=== PATIENT | female | born 1970 | race Caucasian/White ===

== ENCOUNTER 2025-07-04 13:18 | Emergency (ER) | payer OTHER, SELFPAY ==
[2025-07-04] VITALS (12 sets, daily range): BP systolic 123–160; BP diastolic 81–101; PULSE 75–90; RESP 14–27; TEMP 36.9; O2SAT 79–100; BMI 26.2
--- NOTE | 2025-07-04 13:27 | DI.RAD.S_ITS ---
PROCEDURE: XR CHEST 1V INDICATIONS: Chest Pain TECHNIQUE: One view of the chest was acquired. COMPARISON: None. FINDINGS: Surgical changes and devices: None. Lungs and pleura: Lungs are clear. No pleural effusions or pneumothorax. Mediastinum: Mediastinal contours appear normal. Heart size is normal. Bones and chest wall: No suspicious bony lesions. Overlying soft tissues appear unremarkable. IMPRESSION: No acute cardiopulmonary abnormality is seen. Dictated by: Mayra Douglass M.D. on 07/04/2025 at 13:50 Approved by: Mayra Douglass M.D. on 07/04/2025 at 13:50
--- NOTE | 2025-07-04 13:27 | EKG_ITS ---
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
[2025-07-04 13:39] LABS: Add Manual Diff / Slide Review NO; Hematocrit 41.4 % (36-46); Hemoglobin 14.1 g/dL (12.0-16.0); Lymphocytes Absolute Auto 2200 /uL (1100-4500); Mean Corpuscular HGB Conc 34.0 % (30-36); Mean Corpuscular Hemoglobin 30.1 PG (26-34); Mean Corpuscular Volume 88.6 fL (80-100); Platelet Count 277 X10^3/uL (150-400)
[2025-07-04 13:47] LABS: INR 1.0 (0.9-1.3); Prothrombin Time 11.0 SECONDS (9.4-12.5)
[2025-07-04 13:49] LABS: PTT Partial Thromboplastin Tim 30 SECONDS (25.1-36.5)
[2025-07-04 13:53] LABS: Alanine Aminotransferase 18 IU/L (<35); Albumin 4.7 g/dL (3.5-5.0); Albumin Globulin Ratio 1.6 (1.0-2.8); Alkaline Phosphatase 78 U/L (38-126); Blood Urea Nitrogen 18 mg/dL (7-17); Calcium 9.1 mg/dL (8.4-10.2); Carbon Dioxide 24 mmol/L (22-32); Chloride 102 mmol/L (98-107); Creatine Kinase 48 U/L (30-135); Estimated Glomerular Filt Rate > 60 mL/min (>60); Globulin 3.0 g/dL (1.7-4.1); Glucose 100 mg/dL (70-99); HEMOLYSIS 16 (0-50); Lipase 89 U/L (23-300); Magnesium 2.0 mg/dL (1.6-2.3); Potassium 3.9 mmol/L (3.4-5.1); Sodium 135 mmol/L (137-145); Total Protein 7.7 g/dL (6.3-8.2)
[2025-07-04 14:05] LABS: NT-proBNP (BNP-Adult 18+) 41 pg/mL (<125); Troponin I < 0.012 ng/mL (0.01-0.034)
--- NOTE | 2025-07-04 14:19 | DI.CT.S_ITS ---
PROCEDURE: CT ANGIO HEAD AND NECK INDICATIONS: syncope/dizzy TECHNIQUE: After the administration of intravenous contrast, 1 mm thick sections acquired from the aortic arch through the [place] of [place]. 3-dimensional rpnsegn-sctcevkqf-lfvqbqvwhr (MIP) and/or volume rendering reformats were acquired of the central intracranial vasculature and neck separately. For radiation dose reduction, the following was used: automated exposure control, adjustment of mA and/or kV according to patient size. COMPARISON: None. FINDINGS: Image quality: Diagnostic. Cerebral CT Angiogram: Internal carotid arteries: No acute findings. Intracranial ICA are patent with no significant stenosis. No occlusion. No aneurysm. Anterior cerebral arteries: Unremarkable. No significant stenosis. No occlusion. No aneurysm. Middle cerebral arteries: Unremarkable. No significant stenosis. No occlusion. No aneurysm. Posterior cerebral arteries: Unremarkable. No significant stenosis. No occlusion. No aneurysm. Basilar artery: Unremarkable. No significant stenosis. No occlusion. No aneurysm. Vertebral arteries: Unremarkable as visualized. Dural venous sinuses: Unremarkable given phase of enhancement. Other: Arterial phase appearance of the brain parenchyma is unremarkable. Neck CT Angiogram: Internal carotid arteries: Unremarkable. No significant stenosis. No dissection or occlusion. Common carotid arteries: Unremarkable. No significant stenosis. No dissection or occlusion. External carotid arteries: Unremarkable. No occlusion. Vertebral arteries: Unremarkable. No significant stenosis. No dissection or occlusion. Aortic Arch and Mediastinum: Partially visualized aortic arch unremarkable without evidence of aneurysm. Origins of the great vessels unremarkable. Other: Arterial phase soft tissues of the neck and chest are unremarkable. IMPRESSION: No significant intracranial arterial abnormality is seen. No significant abnormality is seen within the arteries of the neck. Any quantitative measurements of stenosis were performed using NASCET criteria. Dictated by: Mayra Douglass M.D. on 07/04/2025 at 14:54 Approved by: Mayra Douglass M.D. on 07/04/2025 at 14:57
--- NOTE | 2025-07-04 14:24 | ED_ITS ---
HPI - Syncope General Chief Complaint: Syncope Stated Complaint: onset dizziness , fell, feeling week Time Seen by Provider: 07/04/25 13:21 Source: patient Mode of arrival: Ambulatory Limitations: no limitations History of Present Illness HPI narrative: Patient here with . She had less than 5 second episode of syncope at work today. 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 She awoke to find the customer talking to her. responded and she was standing up already by time arrived. Denies any injury. Denies any chest pain back pain abdominal pain headache palpitations. No recent illness no fever cough cold congestion nausea vomiting diarrhea no black or bloody stools. No personal or family history of arrhythmia or pulmonary embolism or heart valve disease or heart attack or strokes. Patient denies any shortness of breath prior to syncope. Again no pain before syncope. Related Data Allergies Allergy/AdvReac Type Severity Reaction Status Date / Time No Known Drug Allergies Allergy Verified 07/04/25 13:28 Review of Systems Review of Systems Narrative: GENERAL: Negative chills, fatigue, malaise, fever, sweats. HEENT: Negative sinus pain, ear pain, sore throat RESPIRATORY: Negative dyspnea, cough CARDIOVASCULAR: Negative chest pain, palpitations positive syncope GASTROINTESTINAL: Negative vomiting, nausea, abdominal pain : Negative dysuria, frequency, hematuria MUSCULOSKELETAL: Negative muscle or bony pain SKIN: Negative rash, skin lesions NEUROLOGIC: Negative weakness, numbness ROS Unobtainable: All systems reviewed & are unremarkable except as noted in HPI and below Patient History Social History Smoking Status: Unknown if ever smoked Smoking Status: Unknown if ever smoked Exam Narrative Exam Narrative: GENERAL: in no distress, not toxic not dyspneic HEAD: Normocephalic. EYES: Pupils equal round ENT: Mucous membranes moist. NECK: Trachea midline. CARDIOVASCULAR: Regular rate and rhythm, no murmur RESPIRATORY: Clear to auscultation. Breath sounds equal bilaterally. No wheezes, rales, or rhonchi. GASTROINTESTINAL: Abdomen soft, non-tender EXTREMITIES: No gross deformities. BACK: No flank tenderness. NEURO: AOx4. Clear speech SKIN: Warm and dry PSYCH: Not anxious, is cooperative Initial Vital Signs Initial Vital Signs: Vital Signs Temperature 98.5 F 07/04/25 13:19 Pulse Rate 90 07/04/25 13:19 Respiratory Rate 14 07/04/25 13:19 Blood Pressure 145/87 H 07/04/25 13:19 Pulse Oximetry 98 07/04/25 13:19 Oxygen Delivery Method Room Air 07/04/25 13:19 Course Orders Ordered: ED Orders 07/04/25 13:27 XR chest 1V Stat EKG-12 Lead Stat 07/04/25 13:30 Complete Blood Count AUTO DIFF Stat Comprehensive Metabolic Panel Stat Lipase Stat Magnesium Stat NT-proBNP (BNP-Adult 18+) Stat PTT Partial Thromboplastin Ronni Stat Prothrombin Time INR Stat Troponin & CK Cardiac Panel Stat 07/04/25 14:19 CT angio head and neck Stat 07/04/25 14:23 CT head/brain wo con Stat Discontinued Medications Aspirin (Aspirin 81 Mg Chew Tab) 324 mg PO NOW ONE Stop: 07/04/25 13:28 Last Admin: 07/04/25 14:49 Dose: Not Given Documented By: OLIVE Sodium Chloride (Normal Saline 0.9%) 1,000 mls @ 1,000 mls/hr IV BOLUS ONE Stop: 07/04/25 15:18 Last Infusion: 07/04/25 15:30 Dose: Infused Documented By: Admin: 07/04/25 14:44 Dose: 1,000 mls/hr Documented By: ROSELINE Nicardipine HCl 25 mg/ Sodium (Chloride) 250 mls @ 50 mls/hr IV TITRATE PETER; Protocol Vital Signs Vital signs: Vital Signs - 8 hr 07/04/25 13:19 07/04/25 13:24 07/04/25 13:24 Temperature 98.5 F Pulse Rate 90 89 Pulse Rate [Orthostatic Lying] Pulse Rate [Orthostatic Sitting] Pulse Rate [Orthostatic Standing] Respiratory Rate 14 Blood Pressure 145/87 H 145/87 H Blood Pressure [Orthostatic Lying] Blood Pressure [Orthostatic Sitting] Blood Pressure [Orthostatic Standing] Pulse Oximetry 98 98 Oxygen Delivery Method Room Air 07/04/25 13:30 07/04/25 13:30 07/04/25 14:00 Temperature Pulse Rate 88 78 Pulse Rate [Orthostatic Lying] Pulse Rate [Orthostatic Sitting] Pulse Rate [Orthostatic Standing] Respiratory Rate 27 H Blood Pressure 134/83 Blood Pressure [Orthostatic Lying] Blood Pressure [Orthostatic Sitting] Blood Pressure [Orthostatic Standing] Pulse Oximetry 100 100 Oxygen Delivery Method 07/04/25 14:00 07/04/25 14:20 07/04/25 14:20 Temperature Pulse Rate 81 Pulse Rate [Orthostatic Lying] Pulse Rate [Orthostatic Sitting] Pulse Rate [Orthostatic Standing] Respiratory Rate Blood Pressure 129/86 137/81 Blood Pressure [Orthostatic Lying] Blood Pressure [Orthostatic Sitting] Blood Pressure [Orthostatic Standing] Pulse Oximetry 99 Oxygen Delivery Method 07/04/25 14:22 07/04/25 14:22 07/04/25 14:23 Temperature Pulse Rate 84 Pulse Rate [Orthostatic Lying] Pulse Rate [Orthostatic Sitting] Pulse Rate [Orthostatic Standing] Respiratory Rate Blood Pressure 136/83 135/81 Blood Pressure [Orthostatic Lying] Blood Pressure [Orthostatic Sitting] Blood Pressure [Orthostatic Standing] Pulse Oximetry 99 Oxygen Delivery Method 07/04/25 14:23 07/04/25 14:30 07/04/25 14:30 Temperature Pulse Rate 88 83 Pulse Rate [Orthostatic Lying] Pulse Rate [Orthostatic Sitting] Pulse Rate [Orthostatic Standing] Respiratory Rate Blood Pressure 160/101 H Blood Pressure [Orthostatic Lying] Blood Pressure [Orthostatic Sitting] Blood Pressure [Orthostatic Standing] Pulse Oximetry 98 98 Oxygen Delivery Method 07/04/25 14:31 07/04/25 15:00 07/04/25 15:01 Temperature Pulse Rate 76 Pulse Rate [Orthostatic Lying] 78 Pulse Rate [Orthostatic Sitting] 85 Pulse Rate [Orthostatic Standing] 87 Respiratory Rate Blood Pressure 123/85 Blood Pressure [Orthostatic Lying] 137/81 Blood Pressure [Orthostatic Sitting] 136/83 Blood Pressure [Orthostatic Standing] 135/81 Pulse Oximetry 79 L Oxygen Delivery Method 07/04/25 15:01 07/04/25 15:26 Temperature Pulse Rate 75 80 Pulse Rate [Orthostatic Lying] Pulse Rate [Orthostatic Sitting] Pulse Rate [Orthostatic Standing] Respiratory Rate Blood Pressure 146/85 H Blood Pressure [Orthostatic Lying] Blood Pressure [Orthostatic Sitting] Blood Pressure [Orthostatic Standing] Pulse Oximetry 92 100 Oxygen Delivery Method MDM - Syncope Lab Data 07/04/25 13:30 07/04/25 13:30 Labs: Lab Results 07/04/25 Range/Units 13:30 WBC 6.0 (4.5-11.0) X10^3/uL RBC 4.67 (4.0-5.2) X10^6/uL Hgb 14.1 (12.0-16.0) g/dL Hct 41.4 (36-46) % MCV 88.6 (80-100) fL MCH 30.1 (26-34) PG MCHC 34.0 (30-36) % RDW 13.5 (11.6-14.8) % Plt Count 277 (150-400) X10^3/uL Neut % (Auto) 54.4 (50-75) % Lymph % (Auto) 36.2 (25-40) % [place] % (Auto) 6.8 (3-14) % Eos % (Auto) 1.7 L (2-4) % Baso % (Auto) 0.9 (0-2) % Neut # (Auto) 3300 (3664-9101) /uL Lymph # (Auto) 2200 (6341-0035) /uL [place] # (Auto) 400 (0-900) /uL Eos # (Auto) 100 (0-450) /uL Baso # (Auto) 100 (0-100) /uL PT 11.0 (9.4-12.5) SECONDS INR 1.0 (0.9-1.3) APTT 30 (25.1-36.5) SECONDS Sodium 135 L (137-145) mmol/L Potassium 3.9 (3.4-5.1) mmol/L Chloride 102 (98-107) mmol/L Carbon Dioxide 24 (22-32) mmol/L BUN 18 H (7-17) mg/dL Creatinine 0.74 (0.52-1.04) mg/dL Estimated GFR > 60 (>60) mL/min BUN/Creatinine Ratio 24.3 H (6-22) Glucose 100 H (70-99) mg/dL Calcium 9.1 (8.4-10.2) mg/dL Magnesium 2.0 (1.6-2.3) mg/dL Total Bilirubin 0.7 (0.2-1.3) mg/dL AST 26 (14-36) IU/L ALT 18 (<35) IU/L Alkaline Phosphatase 78 (38-126) U/L Total Creatine Kinase 48 (30-135) U/L Troponin I < 0.012 (0.01-0.034) ng/mL NT-Pro-B Natriuret Pep 41 (<125) pg/mL Total Protein 7.7 (6.3-8.2) g/dL Albumin 4.7 (3.5-5.0) g/dL Globulin 3.0 (1.7-4.1) g/dL Albumin/Globulin Ratio 1.6 (1.0-2.8) Lipase 89 (23-300) U/L Imaging Data Chest x-ray: Radiologist's Impression: [place] [address] XRay Report Signed Patient: Malena Ledezma MR#: [id number] : 1970 Acct:[id number] Age/Sex: 54 / F Date of Service: 07/04/25 Loc: ED Accession Number: [id number] Procedure: XR chest 1V Ordering Provider: Dylan Cortes MD PROCEDURE: XR CHEST 1V INDICATIONS: Chest Pain TECHNIQUE: One view of the chest was acquired. COMPARISON: None. FINDINGS: Surgical changes and devices: None. Lungs and pleura: Lungs are clear. No pleural effusions or pneumothorax. Mediastinum: Mediastinal contours appear normal. Heart size is normal. Bones and chest wall: No suspicious bony lesions. Overlying soft tissues appear unremarkable. IMPRESSION: No acute cardiopulmonary abnormality is seen. Dictated by: Mayra Douglass M.D. on 07/04/2025 at 13:50 Approved by: Mayra Douglass M.D. on 07/04/2025 at 13:50 CT scan - head: Radiologist's Impression: [place] [address] CT Scan Report Signed Patient: Malena Ledezma MR#: [id number] : 1970 Acct:[id number] Age/Sex: 54 / F Date of Service: 07/04/25 Loc: ED Accession Number: [id number] Procedure: CT head/brain wo con Ordering Provider: Dylan Cortes MD PROCEDURE: CT HEAD/BRAIN WO CON INDICATIONS: dizzy/syncope TECHNIQUE: Noncontrast 4.5 mm thick angled axial sections acquired from the foramen magnum to the vertex, with coronal and sagittal reformats. For radiation dose reduction, the following was used: automated exposure control, adjustment of mA and/or kV according to patient size. COMPARISON: None. FINDINGS: Image quality: Diagnostic. CSF spaces: Basal cisterns are patent. No extra-axial fluid collections. Ventricles are normal in size and shape. Brain: No midline shift. No intracranial mass effect or hemorrhage. [place]- white matter interface is normal. Skull and face: Calvarium and visualized facial bones are intact, without suspicious lesions. Sinuses: Visualized sinuses and mastoids are clear. IMPRESSION: No acute intracranial pathology. Dictated by: Mayra Douglass M.D. on 07/04/2025 at 14:50 Approved by: Mayra Douglass M.D. on 07/04/2025 at 14:51 CTA - brain/neck: Radiologist's Impression: [address] [address] [address] Scan Report Signed Patient: Malena Ledezma MR#: [id number] : 1970 Acct:[id number] Age/Sex: 54 / F Date of Service: 07/04/25 Loc: ED Accession Number: [id number] Procedure: CT angio head and neck Ordering Provider: Dylan Cortes MD PROCEDURE: CT ANGIO HEAD AND NECK INDICATIONS: syncope/dizzy TECHNIQUE: After the administration of intravenous contrast, 1 mm thick sections acquired from the aortic arch through the [place] of [place]. 3-dimensional nfrvbmd-wtrhpxbko-ckfhozxshb (MIP) and/or volume rendering reformats were acquired of the central intracranial vasculature and neck separately. For radiation dose reduction, the following was used: automated exposure control, adjustment of mA and/or kV according to patient size. COMPARISON: None. FINDINGS: Image quality: Diagnostic. Cerebral CT Angiogram: Internal carotid arteries: No acute findings. Intracranial ICA are patent with no significant stenosis. No occlusion. No aneurysm. Anterior cerebral arteries: Unremarkable. No significant stenosis. No occlusion. No aneurysm. Middle cerebral arteries: Unremarkable. No significant stenosis. No occlusion. No aneurysm. Posterior cerebral arteries: Unremarkable. No significant stenosis. No occlusion. No aneurysm. Basilar artery: Unremarkable. No significant stenosis. No occlusion. No aneurysm. Vertebral arteries: Unremarkable as visualized. Dural venous sinuses: Unremarkable given phase of enhancement. Other: Arterial phase appearance of the brain parenchyma is unremarkable. Neck CT Angiogram: Internal carotid arteries: Unremarkable. No significant stenosis. No dissection or occlusion. Common carotid arteries: Unremarkable. No significant stenosis. No dissection or occlusion. External carotid arteries: Unremarkable. No occlusion. Vertebral arteries: Unremarkable. No significant stenosis. No dissection or occlusion. Aortic Arch and Mediastinum: Partially visualized aortic arch unremarkable without evidence of aneurysm. Origins of the great vessels unremarkable. Other: Arterial phase soft tissues of the neck and chest are unremarkable. IMPRESSION: No significant intracranial arterial abnormality is seen. No significant abnormality is seen within the arteries of the neck. Any quantitative measurements of stenosis were performed using NASCET criteria. Dictated by: Mayra Douglass M.D. on 07/04/2025 at 14:54 Approved by: Mayra Douglass M.D. on 07/04/2025 at 14:57 [facility] Narrative Medical decision making narrative: Patient here with . She had less than 5 second episode of syncope at work today. 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 She awoke to find the customer talking to her. responded and she was standing up already by time arrived. Denies any injury. Denies any chest pain back pain abdominal pain headache palpitations. No recent illness no fever cough cold congestion nausea vomiting diarrhea no black or bloody stools. No personal or family history of arrhythmia or pulmonary embolism or heart valve disease or heart attack or strokes. Patient denies any shortness of breath prior to syncope. Again no pain before syncope. MDM After history and exam, CBC CMP troponin and EKG CT head CT angiogram head and neck orthostatics chest x-ray normal saline Differential considered: Includes but not limited to arrhythmia vasovagal syncope dehydration anemia stroke seizure hypoglycemia Medical records reviewed: No recent visit for this complaint Lab Test results independently reviewed as above. Pertinent findings: WBC 6.0 hemoglobin 14.1 INR 1.0 sodium 135 potassium 3.9 BUN 18 creatinine 0.74 troponin less than 0.012 BNP 41 Independently reviewed EKG normal sinus rhythm rate 88 normal EKG Imaging studies independently reviewed: Chest x-ray no acute finding CT head/CT angiogram head and neck no acute finding Consultations: None indicated at this time Re-evaluations: 3:04 p.m.. Updated patient and has been results. Orthostatics were normal. She was not dizzy with orthostatic testing. Reviewed with them results and she does need continued evaluation workup for her syncopal episode included but not limited to echocardiogram and Zio patch. Return precautions reviewed. She desires discharge home. Discussion: IV contrast used for CT imaging. Appropriate for discharge home. Exam and laboratory studies imaging studies are reassuring. Patient and are comfortable for home observation. No driving or operating machinery instructions reviewed with them. Not toxic at discharge. They desire discharge home. Patient never had chest pain back pain abdominal pain or headache. Diagnosis: Syncope Discharge Plan Departure Patient Disposition: Home Clinical Impression: Syncope and collapse Instructions: DI for Syncope in Adults (Fainting) Activity Restrictions/Additional Instructions: Your exam and laboratory studies imaging studies and EKG are reassuring today. Please see your family doctor this week for re-evaluation that his schedule echocardiogram of the heart and Zio patch for cardiac monitoring. No driving or operating machinery until seen by your provider. Referrals: Yesenia Fields ARNP [Primary Care Provider, Medical] Stand Alone Forms: Patient Portal/API
[2025-07-04] MEDS: SODIUM CHLORIDE 0.9% 1,000 ML 1000 ML IV (14:44)
== END 2025-07-04 15:26 | disposition home or self-care (01) ==
PROVIDERS: Emergency Provider Emergency Medicine; PCP Nurse Practitioner Family
DX: R55 Syncope and collapse (principal); R42 Dizziness and giddiness; R07.9 Chest pain, unspecified
CPT/HCPCS: 70450; 70496; 70498; 71045; 80053; 82550; 83690; 83735; 83880; 84484; 85025; 85610; 85730; 93005; 96360; 99283; 99284; Q9967